=== PATIENT | female | born 1985 ===

== ENCOUNTER 2025-04-07 05:16 | Day surgery (SDC) | payer OTHER ==
[2025-04-02 11:10] VITALS: BP 120/81
[2025-04-02 11:27] LABS: BASO % 0.7 % (0.1-1.2); EOS # 0.10 (0.04-0.54); EOS % 1.6 % (0.7-7.0); LYMPH # 2.18 (1.18-3.74); LYMPH % 35.9 % (19.3-53.1); MEAN PLATELET VOLUME 9.60 fl (9.4-12.4); MONO # 0.27 (0.24-0.82); MONO % 4.4 % (4.7-12.5); NEUT # 3.46 (1.56-6.13); NEUT % 57.1 % (34.0-71.1); RED CELL DISTRIBUTION WIDTH 12.3 % (11.6-14.4)
[2025-04-02 11:40] LABS: URINE APPEARANCE Clear; URINE BACTERIA 135.6 uL (0.0-1933); URINE BILIRRUBIN Negative (NEGATIVE); URINE BLOOD Negative; URINE COLOR Yellow; URINE EPITHELIAL CELLS 3.8 uL (0.0-38.8); URINE GLUCOSE Negative (NEGATIVE); URINE KETONE Negative (NEGATIVE); URINE LEUKOCYTE Trace; URINE NITRATE Negative; URINE PROTEIN Negative (NEGATIVE); URINE RBC 7.7 uL (0.0-20.8); URINE UROBILINOGEN 0.2 E.U./dl; URINE WBC 9.8 uL (0.0-23.2)
[2025-04-02 11:50] LABS: INR 1.0
[2025-04-02 11:55] LABS: URINE CAST 0.00 uL (0.0-1.40)
[2025-04-02 12:41] LABS: ALT/SGPT 21.0 U/L (12-78); AST/SGOT 15.0 U/L (15-37); BILIRUBIN TOTAL 0.52 mg/dL (0.3-1.2); BUN CREA RATIO 12.0 (7.0-25.0); CREATININE SERUM 0.92 mg/dL (0.55-1.02); GFR 67.61; GLOBULINA 2.7 G/DL (2.4-3.5); GLUCOSE FASTING 81.0 mg/dL (65-100); OSMOLALITY SERUM 282.0 MOSM/KG (275-295); T3 UPTAKE 34.0 % (30-39); T4 TOTAL 7.29 UG/DL (4.8-13.9); TSH 0.868 uIU/mL (0.358-3.74)
[2025-04-02 13:12] LABS: CORTISOL 6.85 ug/dl; T3 TOTAL 0.985 ng/ml (0.846-2.02)
[2025-04-04 09:11] LABS: ESTRADIOL SERUM 46.2 pg/mL (.); LEUTEINIZING HORMONE 11.8 mIU/mL (.); PROGESTERONA < 0.1 ng/mL (.); PROLACTIN 9.7 ng/mL (4.8-33.4)
[2025-04-05 19:07] LABS: T T 14 ng/dL (8-60); test free 1.6 pg/mL (0.0-4.2)
[~2025-04-07] VITALS: Ht 165.1 cm; Wt 70.3 kg
[~2025-04-07 05:16] MED LIST: MAG GLYCINATE100 MG PO; MOUNJARO2.5 MG/0.5
[2025-04-07] MEDS ORDERED: POVIDONE-IODINE 118 ML BOTT TOP ONE (07:30)
[2025-04-07] MEDS ORDERED: KETOROLAC TROMETHAMINE 30 MG VIAL IV ONE (08:15)
[2025-04-07] MEDS ORDERED: ONDANSETRON HCL 2 MG/ML VIAL IV ONE ×2 (08:15→10:10)
[2025-04-07 17:12] LABS: ESTRONE 25 pg/mL (27-231)
[2025-04-09 09:11] LABS: DHEA 207 ng/dL (31-701)
== END 2025-04-07 12:35 | disposition home or self-care (01) ==
LOC: CIR.AMB 05:16
PROVIDERS: ATTEND Obstetrics & Gynecology
DX: N93.8 Other specified abnormal uterine and vaginal bleeding (principal); N84.0 Polyp of corpus uteri